=== PATIENT | female | born 1990 | race Caucasian/White ===

== ENCOUNTER 2016-06-30 16:58 | Emergency (ER) | payer MEDICAID ==
[~2016-06-30] VITALS: Ht 167.6 cm; Wt 56.8 kg
[2016-06-30 17:01] VITALS: BP 138/89; PULSE 66; RESP 16; TEMP 98; O2SAT 98
--- NOTE | 2016-06-30 18:13 | PD ---
HPI Chief Complaint: Flank/Kidney Pain Time Seen by Provider: 18:12 Travel History International Travel<30 days: No Contact w/Intl Traveler<30days: No Traveled to known affect area: No History of Present Illness HPI 26 year-old female presents to [facility] department for evaluation left flank pain. Patient states that she woke up this morning and felt that maybe she had pulled a muscle but the pain has worsened throughout the day. Denies any fever or chills. No nausea or vomiting. Patient states that she has had a kidney infection in the past and this feels similar. She has not had any urinary changes however. She is currently on her menstrual cycle. She has no other symptoms to report. PFSH Past Medical History Medical History: Denies Significant Hx ?: Unknown LMP: March Social History Alcohol Use: No Tobacco Use: No Substance Use: No Allergies-Medications Reported Meds & Prescriptions Reported Meds & Active Scripts Active Ibuprofen 600 Mg Tab 600 Mg PO Q8HR PRN Keflex (Cephalexin) 500 Mg Cap 500 Mg PO Q12H 7 Days Review of Systems Except as stated in HPI: all other systems reviewed are Neg Physical Exam Narrative GENERAL: Well-nourished, well-developed email patient, ambulatory no acute distress SKIN: Warm and dry. HEAD: Normocephalic. Atraumatic EYES: No scleral icterus. No injection or drainage. NECK: Supple, trachea midline. No JVD or lymphadenopathy. CARDIOVASCULAR: Regular rate and rhythm without murmurs, gallops, or rubs. RESPIRATORY: Breath sounds equal bilaterally. No accessory muscle use. GASTROINTESTINAL: Abdomen soft, non-tender, nondistended. MUSCULOSKELETAL: No cyanosis, or edema. Tenderness elicited to palpation over the left posterior trunk inferior to the scapula. No crepitus. No deformity. BACK: Nontender without obvious deformity. No CVA tenderness. Data Data Last Documented VS Vital Signs Date Time Temp Pulse Resp B/P Pulse Ox O2 Delivery O2 Flow Rate FiO2 06/30/16 17:01 98.0 66 16 138/89 98 Room Air Orders Urinalysis - C+S If Indicated (06/30/16 17:13) Ed Urine Pregnancytest Poc (06/30/16 17:13) Labs Laboratory Tests Test 06/30/16 18:10 Urine Color YELLOW Urine Turbidity HAZY Urine pH 5.5 Urine Specific [place] 1.017 Urine Protein NEG mg/dL Urine Glucose (UA) NEG mg/dL Urine Ketones NEG mg/dL Urine Occult Blood MOD Urine Nitrite NEG Urine Bilirubin NEG Urine Urobilinogen LESS THAN 2.0 MG/DL Urine Leukocyte Esterase SMALL Urine RBC 27 /hpf Urine WBC 4 /hpf Urine Squamous Epithelial 4 /hpf Cells Urine Bacteria RARE /hpf Urine Mucus FEW /lpf Microscopic Urinalysis Comment CULT NOT INDICATED MDM Medical Decision Making Medical Screen Exam Complete: Yes Emergency Medical Condition: Yes Medical Record Reviewed: Yes Differential Diagnosis Renal colic versus renal calculi versus pyelonephritis versus muscle strain Narrative Course 26 year old female presents to emergency department for evaluation. Patient appears overall well and without distress. Urinalysis is complete Laboratory Tests Test 06/30/16 18:10 Urine Color YELLOW Urine Turbidity HAZY Urine pH 5.5 Urine Specific [place] 1.017 Urine Protein NEG mg/dL Urine Glucose (UA) NEG mg/dL Urine Ketones NEG mg/dL Urine Occult Blood MOD Urine Nitrite NEG Urine Bilirubin NEG Urine Urobilinogen LESS THAN 2.0 MG/DL Urine Leukocyte Esterase SMALL Urine RBC 27 /hpf Urine WBC 4 /hpf Urine Squamous Epithelial 4 /hpf Cells Urine Bacteria RARE /hpf Urine Mucus FEW /lpf Microscopic Urinalysis Comment CULT NOT INDICATED There are rare bacteria and few mucus within the urine. 27 RBCs likely due to menses. Patient is very concerned due to this feeling like her previous kidney infection that got very bad before it was treated. She'll be started on Keflex by mouth. She is encouraged to follow-up with primary care provider and return immediately with any acute worsening of symptoms. Diagnosis Primary Impression: Left flank pain Referrals: Primary Care Physician Patient Instructions: Flank Pain (ED), General Instructions Departure Forms: Tests/Procedures, Work Release Enter return to work date: Jul 02, 2016 Additional Instructions: Maintain adequate oral hydration If you choose to do cranberry juice, do 100% and not from concentrated Follow-up with her primary care provider Return immediately with any acute worsening of symptoms Med/Other Pt SpecificInfo: Prescription(s) given Scripts Ibuprofen 600 Mg [id number] Mg PO Q8HR PRN (PAIN) #30 TAB Ref 0 Prov:Yaneli Garcia 06/30/16 Cephalexin (Keflex)500 Mg [id number] Mg PO Q12H 7 Days Ref 0 Prov:Yaneli Garcia 06/30/16 Disposition: 01 DISCHARGE HOME Condition: Stable Yaneli Garcia Jun 30, 2016 18:12
[2016-06-30 18:44] LABS: BACTERIA, URINE RARE /hpf; BLOOD, URINE MOD (NEG); COMMENT (UR) CULT NOT INDICATED; CULTURE IF INDICATED CULT NOT INDICATED; GLUCOSE,URINE NEG (NEG); KETONE, URINE NEG (NEG); MUCUS URINE FEW /lpf (OCC); NITRITE,URINE NEG (NEG); PH, URINE 5.5 (5.0-8.5); SQUAMOUS EPITHELIAL CELL URINE 4 /hpf (0-5); URINE COLOR YELLOW (YELLW/STRAW)
[2016-06-30] MEDS ORDERED: CEPH-460 PO (19:19)
[2016-06-30] MEDS ORDERED: IBUP-232 PO (19:19)
== END 2016-06-30 20:33 | disposition home or self-care (01) ==
LOC: NETRI 16:58
DX: R10.32 Left lower quadrant pain (principal)
CPT/HCPCS: 81001; 99283

== ENCOUNTER 2017-07-03 21:31 | Emergency (ER) | payer MEDICAID, OTHER ==
[~2017-07-03] VITALS: Ht 167.6 cm; Wt 51.0 kg
[~2017-07-03 21:31] MED LIST: CEPH-460 PO; IBUP-232 PO
[2017-07-03 21:33] VITALS: BP 127/91; PULSE 84; RESP 18; TEMP 98.8; O2SAT 99
[2017-07-03] MEDS ORDERED: SODIUM CHLOR 0.9% 1000 ML INJ 1,000 ML IV SCH (22:08)
[2017-07-03 22:10] VITALS: RESP 18; O2SAT 98
--- NOTE | 2017-07-03 22:12 | PD ---
HPI Chief Complaint: Allergic/Adverse Reaction Time Seen by Provider: 22:08 Travel History International Travel<30 days: No Contact w/Intl Traveler<30days: No Traveled to known affect area: No History of Present Illness HPI 27-year-old female patient presents to the ER today, was seen at urgent care today and diagnosed with laryngitis and bronchitis, put on Zithromax, prednisone , and Tessalon Perles which she took at 8 PM tonight, started to have itchiness on her arm and chest area, felt nauseous and lightheaded. She presents to the ER because she thinks she is having a medication reaction. She has never taken all of those medications before. She denies any shortness of breath, or any other issues. Modifying Factors: None Associated Signs & Symptoms: Itchiness, nausea, lightheadedness starting after taking the medications Risk Factors: Bronchitis PFSH Past Medical History Medical History: Denies Significant Hx Diminished Hearing: No Tetanus Vaccination: Unknown Influenza Vaccination: No ?: Not LMP: 06/19/2017 Past Surgical History Appendectomy: Yes Social History Alcohol Use: No Tobacco Use: No Substance Use: No Allergies-Medications (Allergen,Severity, Reaction): Coded Allergies: No Known Drug Allergies (Verified Allergy, Unknown, 07/03/17) Reported Meds & Prescriptions Reported Meds & Active Scripts Active No Active Prescriptions or Reported Medications Review of Systems Except as stated in HPI: all other systems reviewed are Neg Physical Exam Narrative GENERAL: Well-developed young female patient currently in mild distress. Awake and oriented 3. SKIN: Focused skin assessment warm/dry. HEAD: Atraumatic. Normocephalic. EYES: Pupils equal and round. No scleral icterus. No injection or drainage. ENT: No nasal bleeding or discharge. Mucous membranes pink and moist. No signs of angioedema. Airway is intact. NECK: Trachea midline. No JVD. Supple. CARDIOVASCULAR: Regular rate and rhythm. No murmur appreciated. RESPIRATORY: No accessory muscle use. Clear to auscultation. Breath sounds equal bilaterally. GASTROINTESTINAL: Abdomen soft, non-tender, nondistended. Hepatic and splenic margins not palpable. MUSCULOSKELETAL: No obvious deformities. No clubbing. No cyanosis. No edema. NEUROLOGICAL: Awake and alert. No obvious cranial nerve deficits. Motor grossly within normal limits. Normal speech. PSYCHIATRIC: Appropriate mood and affect; insight and judgment normal. Data Data Last Documented VS Vital Signs Date Time Temp Pulse Resp B/P (MAP) Pulse Ox O2 Delivery O2 Flow Rate FiO2 07/03/17 22:41 78 18 120/70 (87) 100 Room Air 07/03/17 21:33 98.8 Orders Orders Ecg Monitoring (07/03/17 22:08) Iv Access Insert/Monitor (07/03/17 22:08) Oximetry (07/03/17 22:08) Diphenhydramine Inj (Benadryl Inj) (07/03/17 22:15) Famotidine Inj (Pepcid Inj) (07/03/17 22:15) Sodium Chlor 0.9% 1000 Ml Inj (Ns 1000 M (07/03/17 22:08) Sodium Chloride 0.9% Flush (Ns Flush) (07/03/17 22:15) Ondansetron Inj (Zofran Inj) (07/03/17 22:15) MDM Medical Decision Making Medical Screen Exam Complete: Yes Emergency Medical Condition: Yes Medical Record Reviewed: Yes Differential Diagnosis Allergic reaction versus medication side effects Narrative Course Patient was given Benadryl, IV fluids, Zofran, and Zantac in the ER. She was observed in the ER for 2 hours and did not have any further worsening in symptoms. She has never had an allergic reaction to any of these medications before. I do not see any hives but as precaution, I would stop all 3 since we are not sure what she is reacting to. Plan would be to release her after observation period in the ER and give her Benadryl, different antibiotic for rhonchi days. Return for any worsening in symptoms as necessary. The plan has been discussed with her and she states understanding. Diagnosis Primary Impression: Allergic reaction caused by a drug Additional Impression: Bronchitis Med/Other Pt SpecificInfo: Prescription(s) given, Med Stopped (stopped taking Tessalon Perles, prednisone, and Zithromax) Scripts Epinephrine Inj (Epinephrine Inj) 0.15 Mg/0.3 Ml Inj 0.3 MG SQ DIRECTED, #1 INJECTION 0 Refills Prov: Pam Fajardo MD 07/03/17 Diphenhydramine (Diphenhydramine) 25 Mg Cap 25 MG PO Q6H Y for ALLERGIES, #15 CAP 0 Refills Prov: Pam Fajardo MD 07/03/17 Sulfamethoxazole-Trimethoprim (Bactrim DS) 800-160 Mg Tab 1 TAB PO BID for Infection, #14 TAB 0 Refills Prov: Pam Fajardo MD 07/03/17 Disposition: 01 DISCHARGE HOME Condition: Stable Pam Fajardo MD Jul 03, 2017 22:12
[2017-07-03] MEDS ORDERED: ONDANSETRON HCL 4 MG/2 ML VIAL IV PUSH ONE (22:15)
[2017-07-03] MEDS ORDERED: FAMOTIDINE 20 MG/2 ML VIAL IV PUSH ONE (22:15)
[2017-07-03] MEDS ORDERED: SODIUM CHLORIDE 0.9% FLUSH 10 ML FLUSH IV FLUSH PRN (22:15)
[2017-07-03] MEDS ORDERED: diphenhydrAMINE HCL 50 MG/ML VIAL IVP ONE (22:15)
[2017-07-03 22:41] VITALS: BP 120/70; PULSE 78; RESP 18; O2SAT 100
[2017-07-03] MEDS ORDERED: EPIN1INJ24 SQ (23:19)
[2017-07-03] MEDS ORDERED: DIPH25CA PO (23:19)
[2017-07-03] MEDS ORDERED: BACT800T5 PO (23:19)
[2017-07-04 00:01] VITALS: BP 118/72; PULSE 74; RESP 18; O2SAT 100
== END 2017-07-04 00:03 | disposition home or self-care (01) ==
LOC: PHED 21:31
DX: T50.905A Adverse effect of unspecified drugs, medicaments and biological substances, initial encounter (principal); J40 Bronchitis, not specified as acute or chronic; J04.0 Acute laryngitis
CPT/HCPCS: 96361; 96374; 96375; 99284; J1200; J2405; J7030

== ENCOUNTER 2017-10-22 21:45 | Emergency (ER) | payer OTHER ==
[~2017-10-22] VITALS: Ht 167.6 cm; Wt 52.8 kg
[~2017-10-22 21:45] MED LIST changes: +BACT800T5 PO; -CEPH-460 PO; +DIPH25CA PO; +EPIN1INJ24 SQ; -IBUP-232 PO
[2017-10-22 21:49] VITALS: BP 124/80; PULSE 77; RESP 16; TEMP 97.6; O2SAT 100
[2017-10-22] MEDS ORDERED: SODIUM CHLOR 0.9% 1000 ML INJ 1,000 ML IV ONE (22:16)
[2017-10-22] MEDS ORDERED: DEXAMETHASONE SOD PHOS 20 MG/5 ML VIAL IV PUSH ONE (22:30)
[2017-10-22] MEDS ORDERED: SODIUM CHLORIDE 0.9% FLUSH 10 ML FLUSH IVF PRN (22:30)
[2017-10-22] MEDS ORDERED: METOCLOPRAMIDE HCL 10 MG/2 ML VIAL IVP ONE (22:30)
[2017-10-22] MEDS ORDERED: diphenhydrAMINE HCL 50 MG/ML VIAL IVP ONE (22:30)
--- NOTE | 2017-10-22 22:33 | PD ---
HPI Chief Complaint: Headache Time Seen by Provider: 21:59 Travel History International Travel<30 days: No Contact w/Intl Traveler<30days: No Traveled to known affect area: No History of Present Illness HPI Patient is a 27-year-old female with history of migraine headaches, presents the emergency room complains of a migraine. Patient reports that she began to have a typical migraine since this morning, patient reports diffuse headache and pressure to her head. Patient denies any photophobia, reports that she does have associated nausea and vomiting with her symptoms. Patient denies any fever or chills, reports that her headache does feel similar to her previous headaches in the past. Patient reports that she has history of migraine headaches since she was 16 years old, she has been seen by multiple neurologists and was placed on beta-blockers in the past for her symptoms. Patient reports that her recent neurologist told her to see physical therapy as they suggested muscle strain and tension may be the cause of her migraine headaches. Patient reports that when she has her migraine headaches, they usually resolve within a day. She did take Motrin with no relief of symptoms today. REPLACED BY [facility] Past Medical History Narrative Medical Patient with history of migraine headaches since she was 16 years old Diminished Hearing: No ?: Unknown LMP: 08/31/17 Past Surgical History Appendectomy: Yes Social History Alcohol Use: No Tobacco Use: No Substance Use: No Allergies-Medications (Allergen,Severity, Reaction): Coded Allergies: azithromycin (Verified Allergy, Intermediate, Rash, 10/22/17) TAKEN WITH TESSALON PERLES.POSSIBLE ALLERGIC REACTION TO THIS OR THE TESSALON PERLES benzonatate (Verified Allergy, Intermediate, RASH, 10/22/17) TAKEN WITH ZITHROMAX. POSSIBLE ALLERGIC REACTION TO THIS OR ZITHROMAX Reported Meds & Prescriptions Reported Meds & Active Scripts Active Epinephrine Inj (Epinephrine) 0.15 Mg/0.3 Ml Inj 0.3 Mg SQ DIRECTED Diphenhydramine (Diphenhydramine HCl) 25 Mg Cap 25 Mg PO Q6H PRN Bactrim DS (Sulfamethoxazole-Trimethoprim) 800-160 Mg Tab 1 Tab PO BID Review of Systems General / Constitutional: No: Fever, Chills Eyes: No: Blurred Vision, Photophobia, Visual changes HENT: Positive: Headaches, Lightheadedness, No: Congestion, Neck Stiffness, Neck Pain Cardiovascular: No: Chest Pain or Discomfort Respiratory: No: Shortness of Breath Gastrointestinal: No: Abdominal Pain Genitourinary: No: Dysuria Musculoskeletal: No: Pain Skin: No Rash Neurologic: Positive: Headache, No: Weakness, Dizziness, Syncope, Focal Abnormalities, Change in Mentation Psychiatric: No: Depression Endocrine: No: Polydipsia Hematologic/Lymphatic: No: Easy Bruising Physical Exam Narrative GENERAL: Moderate distress SKIN: Focused skin assessment warm/dry. HEAD: Atraumatic. Normocephalic. EYES: Pupils equal and round. No scleral icterus. No injection or drainage. ENT: No nasal bleeding or discharge. Mucous membranes pink and moist. NECK: Trachea midline. No JVD. CARDIOVASCULAR: Regular rate and rhythm. No murmur appreciated. RESPIRATORY: No accessory muscle use. Clear to auscultation. Breath sounds equal bilaterally. GASTROINTESTINAL: Abdomen soft, non-tender, nondistended. Hepatic and splenic margins not palpable. MUSCULOSKELETAL: No obvious deformities. No clubbing. No cyanosis. No edema. NEUROLOGICAL: Awake and alert. No obvious cranial nerve deficits. Motor grossly within normal limits. Normal speech. Cranial nerves II to XII grossly intact with no neurological deficits PSYCHIATRIC: Appropriate mood and affect; insight and judgment normal. Data Data Last Documented VS Vital Signs Date Time Temp Pulse Resp B/P (MAP) Pulse Ox O2 Delivery O2 Flow Rate FiO2 10/23/17 00:08 77 16 120/61 (80) 100 Room Air 10/22/17 21:49 97.6 Orders Orders Complete Blood Count With Diff (10/22/17 22:16) Basic Metabolic Panel (Bmp) (10/22/17 22:16) Prothrombin Time / Inr (Pt) (10/22/17 22:16) Act Partial Throm Time (Ptt) (10/22/17 22:16) Ct Brain W/O Iv Contrast(Rout) (10/22/17 22:16) Ecg Monitoring (10/22/17 22:16) Iv Access Insert/Monitor (10/22/17 22:16) Oximetry (10/22/17 22:16) Sodium Chloride 0.9% Flush (Ns Flush) (10/22/17 22:30) Diphenhydramine Inj (Benadryl Inj) (10/22/17 22:30) Metoclopramide Inj (Reglan Inj) (10/22/17 22:30) Sodium Chlor 0.9% 1000 Ml Inj (Ns 1000 M (10/22/17 22:16) Dexamethasone Inj (Decadron Inj) (10/22/17 22:30) Ed Urine Pregnancytest Poc (10/22/17 22:16) Ketorolac Inj (Toradol Inj) (10/23/17 00:15) Labs Laboratory Tests Test 10/22/17 22:30 White Blood Count 7.5 TH/MM3 Red Blood Count 4.86 MIL/MM3 Hemoglobin 14.2 GM/DL Hematocrit 42.3 % Mean Corpuscular Volume 87.1 FL Mean Corpuscular Hemoglobin 29.3 PG Mean Corpuscular Hemoglobin Concent 33.6 % Red Cell Distribution Width 11.4 % Platelet Count 194 TH/MM3 Mean Platelet Volume 10.4 FL Neutrophils (%) (Auto) 78.4 % Lymphocytes (%) (Auto) 17.1 % Monocytes (%) (Auto) 4.0 % Eosinophils (%) (Auto) 0.2 % Basophils (%) (Auto) 0.3 % Neutrophils # (Auto) 5.9 TH/MM3 Lymphocytes # (Auto) 1.3 TH/MM3 Monocytes # (Auto) 0.3 TH/MM3 Eosinophils # (Auto) 0.0 TH/MM3 Basophils # (Auto) 0.0 TH/MM3 CBC Comment DIFF FINAL Differential Comment Prothrombin Time 10.2 SEC Prothromb Time International Ratio 1.0 RATIO Activated Partial Thromboplast Time 26.4 SEC Blood Urea Nitrogen 7 MG/DL Creatinine 0.75 MG/DL Random Glucose 104 MG/DL Calcium Level 8.5 MG/DL Sodium Level 139 MEQ/L Potassium Level 3.6 MEQ/L Chloride Level 106 MEQ/L Carbon Dioxide Level 27.4 MEQ/L Anion Gap 6 MEQ/L Estimat Glomerular Filtration Rate 93 ML/MIN [facility] Medical Decision Making Medical Screen Exam Complete: Yes Emergency Medical Condition: Yes Medical Record Reviewed: Yes Interpretation(s) Vital Signs Date Time Temp Pulse Resp B/P (MAP) Pulse Ox O2 Delivery O2 Flow Rate FiO2 10/22/17 22:05 100 Room Air 10/22/17 21:49 97.6 77 16 124/80 (95) 100 Differential Diagnosis Cephalgia, ICH, intracranial mass, tension headache Narrative Course During the course of the patients emergency department visit, the patients history, examination, and differential diagnosis were reviewed with the patient. The patient was placed on a predatory hunter with oximetry and frequent blood pressure monitoring. The patient had an IV access obtained and blood work sent for analysis. The patient was initially provided IV fluids, IV Decadron, IV Reglan as well as IV Benadryl A CT of her head was ordered as patient has never had imaging of her brain from the past for her migraine workup. The patients laboratory studies were reviewed and remarkable for CBC & BMP Diagram 10/22/17 22:30 Calcium Level 8.5 Radiology studies were reviewed and remarkable for Last Impressions Head CT 10/22/17 5032 Signed Impressions: Service Date/Time: , October 22, 2017 23:37 - CONCLUSION: Normal examination. Taz Kan Jr., MD Patient re-evaluated, patient feeling much better, reports resolution of symptoms. She will follow up with neurologist and will return to ER as needed. Diagnosis Primary Impression: Migraine Qualified Codes: G43.009 - Migraine without aura, not intractable, without status migrainosus Patient Instructions: General Instructions Additional Instructions: Please provide patient with a copy of their lab work and studies at discharge* * Please follow up with your primary care doctor in 2-3 days Return to the ER if symptoms worsen or progress Return to the ER as needed Disposition: 01 DISCHARGE HOME Condition: Stable Alexus Rubin DO October 22, 2017 22:33
[2017-10-22 22:51] LABS: AUTOMATED NEUTROPHIL # 5.9 TH/MM3 (1.8-7.7); BASOPHIL % 0.3 % (0.0-2.0); EOSINOPHIL % 0.2 % (0.0-4.0); HEMATOCRIT 42.3 % (35.0-46.0); HEMOGLOBIN 14.2 GM/DL (11.6-15.3); LYMPH % 17.1 % (9.0-44.0); LYMPHOCYTE # 1.3 TH/MM3 (1.0-4.8); MEAN CELL VOLUME 87.1 FL (80.0-100.0); MEAN CORPUSCULAR HEMOGLOBIN 29.3 PG (27.0-34.0); MEAN CORPUSCULAR HGB CONC 33.6 % (32.0-36.0); MEAN PLATELET VOLUME 10.4 FL (7.0-11.0); MONOCYTE # 0.3 TH/MM3 (0-0.9); NEUT % 78.4 % (16.0-70.0); PLATELET COUNT 194 TH/MM3 (150-450); RED BLOOD COUNT 4.86 MIL/MM3 (4.00-5.30); RED CELL DISTRIBUTION WIDTH 11.4 % (11.6-17.2); WHITE BLOOD COUNT 7.5 TH/MM3 (4.0-11.0)
[2017-10-22 22:59] LABS: BICARBONATE 27.4 MEQ/L (21.0-32.0); CALCIUM 8.5 MG/DL (8.5-10.1)
[2017-10-22 23:02] LABS: PROTHROMBIN TIME - PATIENT 10.2 SEC (9.8-11.6)
[2017-10-22 23:03] LABS: CREATININE 0.75 MG/DL (0.50-1.00)
--- NOTE | 2017-10-23 00:07 | RADRPT ---
EXAM DATE/TIME: 10/22/2017 23:37 [facility] COMPARISON: No previous studies available for comparison. INDICATIONS : Migraine, nausea and vomiting. RADIATION DOSE: 48.41 CTDIvol (mGy) MEDICAL HISTORY : None SURGICAL HISTORY : Appendectomy. ENCOUNTER: Initial ACUITY: 1 day PAIN SCALE: 6/10 LOCATION: cranial TECHNIQUE: Multiple contiguous axial images were obtained of the head. Using automated exposure control and adj ustment of the mA and/or kV according to patient size, radiation dose was kept as low as reasonably a chievable to obtain optimal diagnostic quality images. DICOM format image data is available electro nically for review and comparison. FINDINGS: CEREBRUM: The ventricles are normal for age. No evidence of midline shift, mass lesion, hemorrhage or acute in farction. No extra-axial fluid collections are seen. POSTERIOR FOSSA: The cerebellum and brainstem are intact. The 4th ventricle is midline. The cerebellopontine angle i s unremarkable. EXTRACRANIAL: The visualized portion of the orbits is intact. SKULL: The calvaria is intact. No evidence of skull fracture. CONCLUSION: Normal examination. Taz Kan Jr., MD on October 23, 2017 at 0:02 Board Certified Radiologist. This report was verified electronically.
[2017-10-23 00:08] VITALS: BP 120/61; PULSE 77; RESP 16; O2SAT 100
[2017-10-23] MEDS ORDERED: KETOROLAC TROMETHAMINE 30 MG/ML (IVP) VIAL IV PUSH ONE (00:15)
== END 2017-10-23 00:50 | disposition home or self-care (01) ==
LOC: PHED 21:45
DX: G43.009 Migraine without aura, not intractable, without status migrainosus (principal)
CPT/HCPCS: 70450; 80048; 84703; 85025; 85610; 85730; 96361; 96374; 96375; 99284; J1100; J1200; J1885; J2765; J7030